=== PATIENT | male | born 1970 | race Caucasian/White ===

== ENCOUNTER 2017-01-24 12:30 | Outpatient (RCR) | payer OTHER | END 2017-02-07 10:13 | disposition home or self-care (01) | LOC: MKS.ESL.PT 12:30 | DX: R42 Dizziness and giddiness (principal) ==

== ENCOUNTER → 2017-08-08 | Day surgery (SDC) | payer OTHER ==
[~2017-08-08] VITALS: Ht 165.1 cm; Wt 75.5 kg
[~2017-08-08] MED LIST: ADDERALL10 MG PO; MULTI VITAMINS1 TAB PO; TOPROL XL 25MG25 MG PO; WELLBUTRIN SR100 M1 PO
[2017-08-08 09:50] VITALS: BP 134/89; PULSE 71; TEMP 98.3
[2017-08-08 10:45] VITALS: BP 114/84; PULSE 73; TEMP 98
[2017-08-08 11:00] VITALS: BP 114/84; PULSE 73
[2017-08-08 11:15] VITALS: BP 111/85; PULSE 64
[2017-08-08 11:30] VITALS: BP 110/79; PULSE 73
== END | disposition home or self-care (01) ==
LOC: SDCO 08:25
DX: K51.40 Inflammatory polyps of colon without complications (principal); K92.1 Melena
CPT/HCPCS: OP; J2250; J3010; J7030